=== PATIENT | female | born 1970 | race Two or more races ===

== ENCOUNTER 2018-10-05 14:29 | Emergency (ER) | payer SELFPAY ==
[2018-10-05 14:40] VITALS: BP 147/93
--- NOTE | 2018-10-05 15:00 | ER Document Report ---
ED General - General Chief Complaint: Medication Refill Stated Complaint: MED REFILL Time Seen by Provider: 10/05/18 14:54 Primary Care Provider: YUNI WILEY [NO LOCAL MD] - Follow up as needed Mode of Arrival: Ambulatory Information source: Patient, [facility] Records Notes: 48-year-old female with a history of hypothyroidism presents with request for medication refill. She states that she is new to the area because of lack of insurance, transportation she has not been able to get a refill on her levothyroxine that she usually gets from her primary care physician in [place]. Patient has no physical complaints at this time. TRAVEL OUTSIDE OF THE [place] IN LAST 30 DAYS: No - HPI Quality of pain: No pain Severity: None Associated symptoms: None. denies: Chest pain, Nonproductive cough, Productive cough, Diarrhea, Fever, Headache, Leg swelling, Nausea, Vomiting, Shortness of breath, Sweating Exacerbated by: Denies Relieved by: Denies Recently seen / treated by doctor: No - Related Data Allergies/Adverse Reactions: ketorolac tromethamine [From Toradol] Allergy (Severe, Verified 10/05/18 14:30) Anaphylaxis lorazepam [Lorazepam] Allergy (Verified 10/05/18 14:30) Urticaria Past Medical History - General Information source: Patient, [facility] Records - Social History Smoking Status: Former Smoker Frequency of alcohol use: None Drug Abuse: None Lives with: Alone Family History: Reviewed & Not Pertinent Patient has suicidal ideation: No Patient has homicidal ideation: No Endocrine Medical History: Reports: Hx Hypothyroidism Past Surgical History: Reports: Hx Orthopedic Surgery, Hx Thyroid Surgery - total thyroidectomy - Immunizations Immunizations up to date: Yes Hx Diphtheria, Pertussis, Tetanus Vaccination: Yes Review of Systems - Review of Systems Notes: REVIEW OF SYSTEMS: CONSTITUTIONAL : Denies fever, chills, or sweats. Denies recent illness. Denies weight loss, recent hospitalizations. EENT: Denies visual changes, eye pain. Denies sore throat, oral lesions, difficulty swallowing. CARDIOVASCULAR: Denies chest pain. Denies palpitations. Denies lower extremity edema. RESPIRATORY: Denies cough. Denies shortness of breath, wheezing. GASTROINTESTINAL: Denies abdominal pain or distention. Denies nausea, vomiting, or diarrhea. Denies blood in vomitus, stools, or per rectum. Denies black, tarry stools. Denies constipation. GENITOURINARY: Denies difficulty urinating, painful urination, frequency, blood in urine, or vaginal discharge. MUSCULOSKELETAL: Denies back or neck pain or stiffness. Denies joint pain or swelling. SKIN: Denies rash, lesions or sores. HEMATOLOGIC : Denies easy bruising or bleeding. LYMPHATIC: Denies swollen glands. NEUROLOGICAL: Denies confusion or altered mental status. Denies loss of consciousness. Denies dizziness or lightheadedness. Denies headache. Denies weakness or paralysis. Denies problems difficulty with ambulation, slurred speech. Denies sensory loss, numbness, or tingling. Denies seizures. PSYCHIATRIC: Denies anxiety or stress. Denies depression, suicidal ideation, or homicidal ideation. Denies visual or auditory hallucinations. Physical Exam - Vital signs Vitals: Temp Pulse Resp BP Pulse Ox 98.6 F 70 18 147/93 H 100 10/05/18 14:38 10/05/18 14:38 10/05/18 14:38 10/05/18 14:38 10/05/18 14:38 - Notes Notes: PHYSICAL EXAMINATION: GENERAL: Well-appearing, well-nourished and in no acute distress. HEAD: Atraumatic, normocephalic. EYES: Pupils equal round and reactive to light, extraocular movements intact, conjunctiva are normal. ENT: Nares patent, oropharynx clear without exudates. Moist mucous membranes. NECK: Normal range of motion, supple without lymphadenopathy LUNGS: Breath sounds clear to auscultation bilaterally and equal. No wheezes rales or rhonchi. HEART: Regular rate and rhythm without murmurs ABDOMEN: Soft, nontender, nondistended abdomen. No guarding, no rebound. No masses appreciated. Female : deferred Musculoskeletal: Normal range of motion, no pitting or edema. No cyanosis. NEUROLOGICAL: Cranial nerves grossly intact. Normal speech, normal gait. Normal sensory, motor exams PSYCH: Normal mood, normal affect. SKIN: Warm, Dry, normal turgor, no rashes or lesions noted. Course - Re-evaluation Re-evalutation: Temp Pulse Resp BP Pulse Ox 98.6 F 70 18 147/93 H 100 10/05/18 14:38 10/05/18 14:38 10/05/18 14:38 10/05/18 14:38 10/05/18 14:38 10/06/18 00:31 48-year-old female with a history of hypothyroidism presents with request for medication refill of her levothyroxine. Vital signs reviewed within normal limits. Patient does not appear toxic or dehydrated. She is in no acute distress. Previous medical records and nursing notes reviewed. Patient is trying to establish primary care in this area but has had difficulty due to lack of insurance and transportation. I have provided her prescription for her levothyroxine. Patient was evaluated and treated as appropriate for the patient's presenting symptoms and complaint, with consideration of any critical or life threatening conditions that may be associated with their obtained history and exam as noted above. All results were discussed with patient. Patient provided the opportunity to ask questions, and express concerns. Patient was educated on treatments based on their presumed diagnosis as noted above. At this time we will discharge the patient with return precautions and follow-up recommendations. Verbal discharge instructions given a the bedside. Medication warnings reviewed. Patient is in agreement with this plan and has verbalized understanding of return precautions. After careful consideration I feel that that patient can be safely discharged from the emergency department, they were advised to followup with a primary care physician in 2-3 days. Dictation on this chart was performed using voice recognition software and may result in unintended grammatical, spelling, syntax or errors. - Vital Signs Vital signs: Temp Pulse Resp BP Pulse Ox 98.6 F 70 18 147/93 H 100 10/05/18 14:38 10/05/18 14:38 10/05/18 14:38 10/05/18 14:38 10/05/18 14:38 Discharge - Discharge Clinical Impression: Medication refill Hypertension Qualifiers: Hypertension type: unspecified Qualified Code(s): I10 - Essential (primary) hy pertension Condition: Good Disposition: HOME, SELF-CARE Instructions: Hypothyroidism ([facility]) Prescriptions: Levothyroxine Sodium 125 mcg PO DAILY #30 tablet Forms: Elevated Blood Pressure Referrals: INEZ,NO [NO LOCAL MD] - Follow up as needed
== END 2018-10-05 15:12 | disposition home or self-care (01) ==
LOC: ER 14:29
DX: E03.9 Hypothyroidism, unspecified (principal); I10 Essential (primary) hypertension
CPT/HCPCS: 99281